=== PATIENT | male | born 1950 | race Caucasian/White ===

== ENCOUNTER 2021-12-14 18:46 | Observation (INO) | payer MEDICARE ==
[2021-12-14] MEDS ORDERED: DIPH,PERTUS(ACELL)TETVAC-LF 0.5 ML VIAL IM ONE (19:01)
[2021-12-14] MEDS ORDERED: TOPICAL SKIN ADHESIVE 1 EACH AMP TOPICAL ONE (19:01)
--- NOTE | 2021-12-14 19:05 | ED ---
General Adult HPI - General Chief complaint: Altered Mental Status Stated complaint: syncope Time Seen by Provider: 12/14/21 18:52 Source: patient, family, RN notes reviewed Mode of arrival: wheelchair Limitations: no limitations - History of Present Illness Initial comments: Patient is a pleasant 70-year-old male presenting to the emergency department following syncopal episode. Patient was walking in the house when family believes he lost consciousness and did run into a hinge on the wall. Patient states he feels fine at this time and has no complaints. With further questioning patient family agrees he does seem somewhat confused. Patient de nies headache. No neck or back pain. No weakness. No history of similar symptoms previous. No history of previous dysrhythmia or a fibrillation. Unclear last tetanus immunization. Patient is on Plavix. - Related Data Home Medications Medication Instructions Recorded Confirmed Krill Oil 500 mg PO DAILY 01/12/16 01/12/16 Levothyroxine Sodium [Synthroid] 88 mcg PO DAILY 01/12/16 01/12/16 Multivitamins, Thera [Multivitamin 1 tab PO DAILY 01/12/16 01/12/16 (formulary)] lisinopriL [Zestril] 20 mg PO DAILY 01/12/16 01/12/16 Previous Rx's Medication Instructions Recorded Atorvastatin [Lipitor] 40 mg PO DAILY #30 tab 01/15/16 Clopidogrel [Plavix] 75 mg PO DAILY #30 tab 01/15/16 Allergies Allergy/AdvReac Type Severity Reaction Status Date / Time No Known Allergies Allergy Verified 12/14/21 18:48 Review of Systems ROS Statement: Those systems with pertinent positive or pertinent negative responses have been documented in the HPI. ROS Other: All systems not noted in ROS Statement are negative. Constitutional: Denies: fever Eyes: Denies: eye pain ENT: Denies: ear pain Respiratory: Denies: cough Cardiovascular: Denies: chest pain Endocrine: Denies: fatigue Gastrointestinal: Denies: abdominal pain Genitourinary: Denies: dysuria Musculoskeletal: Denies: back pain Skin: Denies: rash Neurological: Reports: as per HPI. Denies: headache, weakness Past Medical History Past Medical History: Asthma, Hypertension, Thyroid Disorder Additional Past Medical History / Comment(s): "I was told today that I have had a stroke in the past. It showed on my cat scan today." other HX: Hypothyroid, seasonal sinus problems. History of Any Multi-Drug Resistant Organisms: None Reported Past Surgical History: No Surgical Hx Reported Additional Past Surgical History / Comment(s): Varicoseal, colonoscopy with benign polypectomy. Past Anesthesia/Blood Transfusion Reactions: No Reported Reaction Past Psychological History: No Psychological Hx Reported Smoking Status: Former smoker Past Alcohol Use History: Occasional Past Drug Use History: None Reported - Past Family History Mother Family Medical History: Dementia Additional Family Medical History / Comment(s): Mother of dementia at the age of 86yrs. Father Family Medical History: No Reported History Additional Family Medical History / Comment(s): Father of "natural causes" at the age of 73 yrs. General Exam Limitations: no limitations General appearance: alert, in no apparent distress Head exam: Present: other (Left eyebrow/forehead laceration) Eye exam: Present: normal appearance, PERRL, EOMI ENT exam: Present: normal oropharynx Neck exam: Present: normal inspection. Absent: tenderness Respiratory exam: Present: normal lung sounds bilaterally Cardiovascular Exam: Present: tachycardia, irregular rhythm GI/Abdominal exam: Present: soft. Absent: tenderness Extremities exam: Present: normal inspection Neurological exam: Present: alert, CN II-XII intact. Absent: motor sensory deficit Expanded Patient oriented to: Present: person. Absent: place (Hospital,not what city), time (Oriented to month but not year) Speech: Present: fluid speech Cranial nerves: EOM's Intact: Normal, Facial Sensation: Normal Sensory exam: Upper Extremity Light Touch: Normal, Lower Extremity Light Touch: Normal Motor strength exam: RUE: 5, LUE: 5, RLE: 5, LLE: 5 Eye Response: (4) open spontaneously Motor Response: (6) obeys commands Verbal Response: (4) confused conversation Psychiatric exam: Present: normal affect, normal mood Skin exam: Present: normal color, other (Laceration) Course Vital Signs 12/14/21 12/14/21 12/14/21 18:48 18:59 19:41 Temperature 97.9 F Pulse Rate 106 H 130 H 108 H Respiratory 18 16 16 Rate Blood Pressure 126/76 123/91 142/91 O2 Sat by Pulse 98 99 98 Oximetry EKG Findings - EKG Comments: EKG Findings:: A. fib with rate of 112. QRS 110. QT 301. QTC 367. Left axis. No acute ST change. Inferior Q waves. Procedures - Laceration Laceration #1 Consent Obtained: verbal consent Indication: laceration Site: face Size (cm): 3 Description: linear (Y) Depth: simple, single layer Pre-repair: wound explored, irrigated extensively Type of Sutures: other (Closed with skin adhesive) Patient Tolerated Procedure: well, no complications Medical Decision Making - Medical Decision Making Patient reevaluated and improved. Patient is oriented 3 at this time. No confusion. patient does have new-onset A. fib with RVR. Patient and family updated on results and plan. Dr. Poole has been paged for admission, covering for Dr. Martinez. Cardiology and neurology will be placed on consult. Cardizem drip started. Anticoagulation will be deferred to the morning secondary to syncope with head contusion and transient mild confusion. - Lab Data Result diagrams: 12/14/21 19:05 12/14/21 19:05 Lab Results 12/14/21 12/14/21 12/14/21 Range/Units 19:05 19:05 19:05 WBC 10.5 (3.8-10.6) k/uL RBC 4.24 L (4.30-5.90) m/uL Hgb 14.2 (13.0-17.5) gm/dL Hct 41.5 (39.0-53.0) % MCV 97.8 (80.0-100.0) fL MCH 33.5 (25.0-35.0) pg MCHC 34.2 (31.0-37.0) g/dL RDW 12.3 (11.5-15.5) % Plt Count 309 (150-450) k/uL MPV 7.4 Neutrophils % 67 % Lymphocytes % 23 % Monocytes % 4 % Eosinophils % 3 % Basophils % 0 % Neutrophils # 7.0 (1.3-7.7) k/uL Lymphocytes # 2.4 (1.0-4.8) k/uL Monocytes # 0.5 (0-1.0) k/uL Eosinophils # 0.3 (0-0.7) k/uL Basophils # 0.0 (0-0.2) k/uL PT 10.0 (9.0-12.0) sec INR 0.9 (<1.2) APTT 22.7 (22.0-30.0) sec Sodium 131 L (137-145) mmol/L Potassium 4.2 (3.5-5.1) mmol/L Chloride 95 L (98-107) mmol/L Carbon Dioxide 18 L (22-30) mmol/L Anion Gap 18 mmol/L BUN 16 (9-20) mg/dL Creatinine 1.23 (0.66-1.25) mg/dL Est GFR (CKD-EPI)AfAm 70 (>60 ml/min/1.73 sqM) Est GFR (CKD-EPI)NonAf 60 (>60 ml/min/1.73 sqM) Glucose 108 H (74-99) mg/dL Calcium 8.7 (8.4-10.2) mg/dL Magnesium 1.9 (1.6-2.3) mg/dL Total Bilirubin 0.7 (0.2-1.3) mg/dL AST 23 (17-59) U/L ALT 19 (4-49) U/L Alkaline Phosphatase 56 (38-126) U/L Troponin I (0.000-0.034) ng/mL Total Protein 6.9 (6.3-8.2) g/dL Albumin 4.2 (3.5-5.0) g/dL 12/14/21 Range/Units 19:05 WBC (3.8-10.6) k/uL RBC (4.30-5.90) m/uL Hgb (13.0-17.5) gm/dL Hct (39.0-53.0) % MCV (80.0-100.0) fL MCH (25.0-35.0) pg MCHC (31.0-37.0) g/dL RDW (11.5-15.5) % Plt Count (150-450) k/uL MPV Neutrophils % % Lymphocytes % % Monocytes % % Eosinophils % % Basophils % % Neutrophils # (1.3-7.7) k/uL Lymphocytes # (1.0-4.8) k/uL Monocytes # (0-1.0) k/uL Eosinophils # (0-0.7) k/uL Basophils # (0-0.2) k/uL PT (9.0-12.0) sec INR (<1.2) APTT (22.0-30.0) sec Sodium (137-145) mmol/L Potassium (3.5-5.1) mmol/L Chloride (98-107) mmol/L Carbon Dioxide (22-30) mmol/L Anion Gap mmol/L BUN (9-20) mg/dL Creatinine (0.66-1.25) mg/dL Est GFR (CKD-EPI)AfAm (>60 ml/min/1.73 sqM) Est GFR (CKD-EPI)NonAf (>60 ml/min/1.73 sqM) Glucose (74-99) mg/dL Calcium (8.4-10.2) mg/dL Magnesium (1.6-2.3) mg/dL Total Bilirubin (0.2-1.3) mg/dL AST (17-59) U/L ALT (4-49) U/L Alkaline Phosphatase (38-126) U/L Troponin I <0.012 (0.000-0.034) ng/mL Total Protein (6.3-8.2) g/dL Albumin (3.5-5.0) g/dL - Radiology Data Radiology results: report reviewed (CT brain cervical spine show no acute process), image reviewed (Chest x-ray shows no definite acute process but does recommend follow-up) Critical Care Time Critical Care Time: Yes Total Critical Care Time: 32 Disposition Clinical Impression: Laceration of forehead, Syncope, New onset a-fib Disposition: ADMITTED IP TO THIS [facility] Instructions (If sedation given, give patient instructions): Skin Adhesive Care (ED) Is patient prescribed a controlled substance at d/c from ED?: No Referrals: Yaritza Martinez DO [Primary Care Provider] - 1-2 days Time of Disposition: 21:18
[2021-12-14 19:18] LABS: Basophils % (A) 0 %; Eosinophils # (A) 0.3 k/uL (0-0.7); Eosinophils % (A) 3 %; HCT 41.5 % (39.0-53.0); HGB 14.2 gm/dL (13.0-17.5); Lymphocytes # (A) 2.4 k/uL (1.0-4.8); Lymphocytes % (A) 23 %; MCH 33.5 pg (25.0-35.0); MCHC 34.2 g/dL (31.0-37.0); MCV 97.8 fL (80.0-100.0); Mean Platelet Volume 7.4; Monocytes # (A) 0.5 k/uL (0-1.0); Monocytes % (A) 4 %; Neutrophils % (A) 67 %; Platelet Count 309 k/uL (150-450); RBC 4.24 m/uL (4.30-5.90); RDW 12.3 % (11.5-15.5); WBC 10.5 k/uL (3.8-10.6)
[2021-12-14 19:31] LABS: Albumin 4.2 g/dL (3.5-5.0); Calcium 8.7 mg/dL (8.4-10.2); Magnesium 1.9 mg/dL (1.6-2.3); Potassium 4.2 mmol/L (3.5-5.1); Total Bilirubin 0.7 mg/dL (0.2-1.3); Total Protein 6.9 g/dL (6.3-8.2)
[2021-12-14 20:12] LABS: INR 0.9 (<1.2); Partial Thromboplastin Time 22.7 sec (22.0-30.0)
--- NOTE | 2021-12-14 20:24 | XR ---
EXAMINATION: XR chest 2V DATE AND TIME: 12/14/2021 7:32 PM CLINICAL INDICATION: syncope TECHNIQUE: Departmental protocol COMPARISON: 01/12/2016 FINDINGS: The hemidiaphragms are elevated, consistent with relatively low lung inflation at the moment of X-ray exposure. Given this factor/limitation the lungs appear to be clear. The pleural spaces are negative. The cardiac silhouette is not enlarged. The remainder of the mediastinal silhouette is unremarkable. The skeletal structures and soft tissues are negative for acute findings. IMPRESSION: No definite acute process, but 6 week follow up full-inspiration PA and lateral CXR examination jace alanis.
--- NOTE | 2021-12-14 21:12 | CT ---
EXAMINATION TYPE: CT brain tatianaine wo con DATE OF EXAM: 12/14/2021 COMPARISON: 01/12/16 HISTORY: syncope CT DLP: 1493 mGycm. Automated Exposure Control for Dose Reduction was Utilized. TECHNIQUE: CT scan of the head and cervical spine are performed without contrast. FINDINGS: There is no acute intracranial hemorrhage, mass effect, or midline shift identified. The ventricles and sulci are within normal limits in size. The globes are intact and the visualized sin uses are clear. Cervical spine is visualized in its entirety from C1 through upper thoracic levels and demonstrates s atisfactory alignment without evidence of acute fracture or dislocation. Prevertebral soft tissue ap pears within normal limits. The C1-C2 articulation is unremarkable. IMPRESSION: 1. There is no acute fracture or dislocation evident in the cervical spine. 2. No acute intracranial hemorrhage, mass effect, or midline shift is seen.
[2021-12-14] MEDS ORDERED: NALOXONE 0.4 MG/ML 1 ML VIAL IV PRN (21:19)
[2021-12-14] MEDS ORDERED: ACETAMINOPHEN TAB 325 MG TAB PO PRN (21:19)
[2021-12-14] MEDS ORDERED: DILTIAZEM 125 MG in SODIUM CHLORIDE 0.9% 100 ML IV SCH (21:30)
[2021-12-14] MEDS: SODIUM CHLORIDE 0.9% 1,000 ML IV SCH (22:21)
--- NOTE | 2021-12-15 09:59 | P.CRDCN ---
History of Present Illness History of present illness: HISTORY OF PRESENTING ILLNESS Patient is a pleasant 70-year-old male with history of hypertension, hyperlipidemia, TIA 2019, new-onset of atrial fibrillation who presents for syncopal episode. Patient states he was asleep and then his called for him and apparently he attempted to get up out of his chair and then lost consciousness. Does not recall any prodrome of chest pain or lightheadedness or shortness of breath. found patient with contusion on his left forehead as well as had had a bowel movement. Patient was brought to the ER and found to be in A. fib with mild RVR which is a new diagnosis for him. He had fairly quick return wall with him and mole within approximately 5-10 minutes and was only unconscious for 15-20 seconds. He denies any prior history. No family history of sudden cardiac . EKG shows atrial fibrillation with RVR without significant ST-T wave abnormalities. Troponins normal 3. No d-dimer was drawn. Currently states he feels at his baseline. Has never had cardiac workup before. Noted to be mildly hyponatremic. He was briefly placed on Cardizem drip and converted to sinus rhythm. REVIEW OF SYSTEMS At the time of my exam: CONSTITUTIONAL: Denies fever or chills. CARDIOVASCULAR: Denies chest pain, shortness of breath, orthopnea, PND or palpitations. RESPIRATORY: Denies cough. GASTROINTESTINAL: Denies abdominal pain, diarrhea, constipation, nausea or vomiting. MUSCULOSKELETAL: Denies myalgias. NEUROLOGIC: Denies numbness, tingling or weakness. ENDOCRINE: Denies fatigue, weight change, polydipsia or polyurina. GENITOURINARY: Denies burning, hematuria or urgency with micturation. HEMATOLOGIC: Denies history of anemia or bleeding. PHYSICAL EXAMINATION Vital signs reviewed. CONSTITUTIONAL: No apparent distress. HEENT: Head is normocephalic. Pupils are equal, round. Sclerae anicteric. Mucous membranes of the mouth are moist. No JVD. No carotid bruit. CHEST EXAMINATION: Lungs are clear to auscultation. No chest wall tenderness is noted on palpation or with deep breathing. HEART EXAMINATION: Regular rate and rhythm. S1, S2 heard. No murmurs, gallops or rub. ABDOMEN: Soft, nontender. Positive bowel sounds. EXTREMITIES: 2+ peripheral pulses, no lower extremity edema and no calf tenderness. NEUROLOGIC EXAMINATION: Patient is awake, alert and oriented x3. ASSESSMENT 1. Syncope after waking up 2. New-onset atrial fibrillation, currently back to sinus rhythm 3. Hypertension 4. Prior history of stroke 5. Hyponatremia PLAN We will check d-dimer for completeness sake to rule out any pulmonary embolism. If abnormal we will check a CTA given new-onset of atrial fibrillation. Usually atrial fibrillation should not cause syncope however may have had a conversion pause. Check 2-D echo. Stop Plavix and start Eliquis. Start metoprolol 12.5 daily. If CTA and echo unrevealing patient may be discharged home with a 30 day event monitor. Follow-up in office in 1-2 weeks. Past Medical History Past Medical History: Asthma, CVA/TIA, Hypertension, Thyroid Disorder Additional Past Medical History / Comment(s): Hypothyroid, seasonal sinus problems, pt had CVA im 2015 History of Any Multi-Drug Resistant Organisms: None Reported Past Surgical History: No Surgical Hx Reported Additional Past Surgical History / Comment(s): Varicoseal, colonoscopy with arnold gn polypectomy. Past Anesthesia/Blood Transfusion Reactions: No Reported Reaction Past Psychological History: No Psychological Hx Reported Additional Psychological History / Comment(s): Pt resides with his spouse. He is independent. Smoking Status: Former smoker Past Alcohol Use History: Occasional Past Drug Use History: None Reported - Past Family History Mother Family Medical History: Dementia Additional Family Medical History / Comment(s): Mother of dementia at the age of 86yrs. Father Family Medical History: No Reported History Additional Family Medical History / Comment(s): Father of "natural causes" at the age of 73 yrs. Medications and Allergies Home Medications Medication Instructions Recorded Confirmed Type Levothyroxine Sodium [Synthroid] 88 mcg PO DAILY 01/12/16 12/14/21 History Multivitamins, Thera [Multivitamin 1 tab PO DAILY 01/12/16 12/14/21 History (formulary)] Atorvastatin [Lipitor] 40 mg PO DAILY #30 tab 01/15/16 12/14/21 Rx Clopidogrel [Plavix] 75 mg PO DAILY #30 tab 01/15/16 12/14/21 Rx Ascorbic Acid [Vitamin C] 1,000 mg PO DAILY 12/14/21 12/14/21 History Cholecalciferol [Vitamin D3 (25 25 mcg PO DAILY 12/14/21 12/14/21 History Mcg = 1000 Iu)] Lisinopril/Hydrochlorothiazide 1 tab PO DAILY 12/14/21 12/14/21 History [Zestoretic 10-12.5] [place]-3/Dha/Epa/Fish Oil [Fish Oil 1 cap PO DAILY 12/14/21 12/14/21 History 1,000 mg Softgel] Allergies Allergy/AdvReac Type Severity Reaction Status Date / Time No Known Allergies Allergy Verified 12/14/21 21:32 Physical Exam Vitals: Vital Signs Temp Pulse Pulse Resp BP BP Pulse Ox 12/15/21 08:00 98.2 F 70 18 132/77 96 12/15/21 04:00 97.9 F 71 19 130/77 98 12/14/21 23:08 87 18 137/80 96 12/14/21 22:22 98.0 F 92 16 136/79 97 12/14/21 21:28 117 H 16 134/100 97 12/14/21 19:41 108 H 16 142/91 98 12/14/21 18:59 130 H 16 123/91 99 12/14/21 18:48 97.9 F 106 H 18 126/76 98 Intake and Output 12/14/21 12/15/21 12/15/21 22:59 06:59 14:59 Other: Voiding Method Toilet Toilet # Voids 2 Weight 97.522 kg Results 12/14/21 19:05 12/14/21 19:05 Cardiac Enzymes 12/14/21 12/14/21 12/15/21 Range/Units 19:05 19:05 00:18 AST 23 (17-59) U/L Troponin I <0.012 <0.012 (0.000-0.034) ng/mL 12/15/21 Range/Units 03:36 AST (17-59) U/L Troponin I <0.012 (0.000-0.034) ng/mL Coagulation 12/14/21 Range/Units 19:05 PT 10.0 (9.0-12.0) sec APTT 22.7 (22.0-30.0) sec CBC 12/14/21 Range/Units 19:05 WBC 10.5 (3.8-10.6) k/uL RBC 4.24 L (4.30-5.90) m/uL Hgb 14.2 (13.0-17.5) gm/dL Hct 41.5 (39.0-53.0) % Plt Count 309 (150-450) k/uL Comprehensive Metabolic Panel 12/14/21 Range/Units 19:05 Sodium 131 L (137-145) mmol/L Potassium 4.2 (3.5-5.1) mmol/L Chloride 95 L (98-107) mmol/L Carbon Dioxide 18 L (22-30) mmol/L BUN 16 (9-20) mg/dL Creatinine 1.23 (0.66-1.25) mg/dL Glucose 108 H (74-99) mg/dL Calcium 8.7 (8.4-10.2) mg/dL AST 23 (17-59) U/L ALT 19 (4-49) U/L Alkaline Phosphatase 56 (38-126) U/L Total Protein 6.9 (6.3-8.2) g/dL Albumin 4.2 (3.5-5.0) g/dL Current Medications Generic Name Dose Route Start Last Admin Trade Name Freq PRN Reason Stop Dose Admin Acetaminophen 650 mg 12/14/21 21:19 Acetaminophen Tab 325 Mg Tab PO Q6HR PRN Mild Pain or Fever > 100.5 Diltiazem HCl 125 mg/ Sodium 125 mls @ 5 mls/hr 12/14/21 21:30 12/14/21 22:21 Chloride IV 5 mg/hr .Q24H ERIK 5 mls/hr Administration 5 MG/HR Sodium Chloride 1,000 mls @ 75 mls/hr 12/14/21 21:30 12/14/21 22:21 Saline 0.9% IV 75 mls/hr .[id number] ERIK Administration Naloxone HCl 0.2 mg 12/14/21 21:19 Naloxone 0.4 Mg/Ml 1 Ml Vial IV Q2M PRN Opioid Reversal Intake and Output 12/14/21 12/15/21 12/15/21 22:59 06:59 14:59 Other: Voiding Method Toilet Toilet # Voids 2 Weight 97.522 kg 12/14/21 19:05 12/14/21 19:05
--- NOTE | 2021-12-15 10:55 | P.CNNES ---
History of Present Illness Consult date: 12/15/21 Requesting physician: Papi Lozada Reason for Consult: syncope vs transient confusion History of Present Illness: This is a 70 year old gentleman with medical history of old stroke about 6 years ago, hypothyroidism, hypertension who presented emergency department following a syncopal episode. Patient stated that yesterday he was sitting down in a chair watching TV and then fell asleep. Then his called him so he got up and the he was sitting in the living room and walk to the kitchen and all of a sudden he passed out. He said he passed out for about a minute and a half and regained consciousness quickly. When he felt the immediately ran to check on him and that he denied that he had any jerk in of any extremity. Patient denied any symptoms prior to passing out. Denies any shortness of breath, chest pain, feeling lightheaded, any dizziness, any visual disturbance. He did have urinary incontinence after the episode. Denied any tongue bite or tongue soreness. Denied any bowel incontinence. Denies any history of seizures or any family history of seizures. Denies any history of atrial fibrillation. Of note in 2016 patient had MRI the brain in our facility and is reported that the patient has parasagittal left frontal stroke that was acute Some of the workup during this hospital visit consisted of: Patient is afebrile and the white blood cell is within normal limits. Red blood cells 4.24 which is slightly low otherwise rest of CBC with differential is unremarkable Initial serum glucose is 108. Sodium is 131. AST and ALT is within normal limits ED had is reported as no acute intracranial hemorrhage, mass effect or midline shift is seen. I personally reviewed the CT of the head there is no acute subacute ischemic stroke. There is no acute parenchymal hemorrhage. The patient does have an old left subcortical frontal next to the anterior horn of the lateral ventricle CT cervical is reported as there is no acute fracture or dislocation of the cervical spine. EKG is reported as age are fibrillation with rapid ventricular response. Left axis deviation. Review of Systems Review of system: The 12 point system was reviewed and apparent positive and negative per HPI. Past Medical History Past Medical History: Asthma, CVA/TIA, Hypertension, Thyroid Disorder Additional Past Medical History / Comment(s): Hypothyroid, seasonal sinus problems, pt had CVA im 2016 History of Any Multi-Drug Resistant Organisms: None Reported Past Surgical History: No Surgical Hx Reported Additional Past Surgical History / Comment(s): Varicoseal, colonoscopy with benign polypectomy. Past Anesthesia/Blood Transfusion Reactions: No Reported Reaction Past Psychological History: No Psychological Hx Reported Additional Psychological History / Comment(s): Pt resides with his spouse. He is independent. Smoking Status: Former smoker Past Alcohol Use History: Occasional Past Drug Use History: None Reported - Past Family History Mother Family Medical History: Dementia Additional Family Medical History / Comment(s): Mother of dementia at the age of 86yrs. Father Family Medical History: No Reported History Additional Family Medical History / Comment(s): Father of "natural causes" at the age of 73 yrs. Medications and Allergies Home Medications Medication Instructions Recorded Confirmed Type Levothyroxine Sodium [Synthroid] 88 mcg PO DAILY 01/12/16 12/14/21 History Multivitamins, Thera [Multivitamin 1 tab PO DAILY 01/12/16 12/14/21 History (formulary)] Atorvastatin [Lipitor] 40 mg PO DAILY #30 tab 01/15/16 12/14/21 Rx Clopidogrel [Plavix] 75 mg PO DAILY #30 tab 01/15/16 12/14/21 Rx Ascorbic Acid [Vitamin C] 1,000 mg PO DAILY 12/14/21 12/14/21 History Cholecalciferol [Vitamin D3 (25 25 mcg PO DAILY 12/14/21 12/14/21 History Mcg = 1000 Iu)] Lisinopril/Hydrochlorothiazide 1 tab PO DAILY 12/14/21 12/14/21 History [Zestoretic 10-12.5] [place]-3/Dha/Epa/Fish Oil [Fish Oil 1 cap PO DAILY 12/14/21 12/14/21 History 1,000 mg Softgel] Allergies Allergy/AdvReac Type Severity Reaction Status Date / Time No Known Allergies Allergy Verified 12/14/21 21:32 Physical Examination - Vital Signs Vital Signs: Vital Signs Temp Pulse Pulse Resp BP BP Pulse Ox 12/15/21 08:00 94 L 12/15/21 04:00 97.9 F 71 19 130/77 98 12/14/21 23:08 87 18 137/80 96 12/14/21 22:22 98.0 F 92 16 136/79 97 12/14/21 21:28 117 H 16 134/100 97 12/14/21 19:41 108 H 16 142/91 98 12/14/21 18:59 130 H 16 123/91 99 12/14/21 18:48 97.9 F 106 H 18 126/76 98 Intake and Output 12/14/21 12/15/21 12/15/21 22:59 06:59 14:59 Other: Voiding Method Toilet # Voids 2 Weight 97.522 kg GENERAL: The patient is lying in bed and is not in acute distress. HENT: Left periorbital bruise mostly left lateral and lower. CHEST: The heart rate is regular rate rhythm. No murmurs to auscultation. LUNG: Clear to auscultation bilaterally no wheezing noted throughout. Not labored breathing. ABDOMEN/GI: Bowel sounds present in all 4 quadrants. No tenderness to palpation throughout. NEUROLOGICAL: Higher mental function: The patient is awake, alert, oriented to self, place and time. Patient is following commands. No aphasia and no neglect. Cranial nerves: The pupils are round, equal and reactive to light and accommodation. Visual norris are full to confrontation throughout. Extraocular movement is intact no nystagmus is noted. Facial sensation is normal to touch throughout. The facial strength is normal throughout. Hearing is normal bilaterally to hand rub. Tongue is midline and moved [id number] without any difficulty. No dysarthria is noted. Shoulder shrug is normal bilaterally. Motor: Gait is deferred. The strength is 5 over 5 throughout. Normal tone and bulk. Cerebellum: Normal finger to nose bilaterally. Sensation: Sensation is normal to touch throughout. Reflexes (right/left): 2+ throughout. Plantars are downgoing bilaterally. Results - Laboratory Findings CBC and BMP: 12/14/21 19:05 12/14/21 19:05 Abnormal Lab Findings: Abnormal Labs 12/14/21 12/14/21 19:05 19:05 RBC 4.24 L Sodium 131 L Chloride 95 L Carbon Dioxide 18 L Glucose 108 H Assessment and Plan Assessment: Syncopal episodes seems possibly due to cardiac in etiology. Has new onset atrial which possibly can cause cardiac pause per cardiology. Does not appear seizures. New onset atrial fibrillation Old left subcortical frontal stroke adjacent to anterior horn of lateral ventricle Hypertension Hypothyroidism Plan: I ordered orthostatic vitals and routine EEG. If EEG is positive for epileptiform discharges or seizures then will start antiepileptic discharges. Cardiology is consulted We'll defer the rest of the medical management to primary team The plan is discussed with patient. Thank you for consultation. David Diaz M.D. Neuro-hospitalist Time with Patient: Greater than 30
[2021-12-15] MEDS: METOPROLOL SUCCINATE (ER) 25 MG TAB.ER.24H PO SCH (11:53)
[2021-12-15] MEDS: APIXABAN 5 MG TAB PO SCH ×2 (11:53→19:59)
[2021-12-15] MEDS: SODIUM CHLORIDE 0.9% 1,000 ML IV SCH (11:53)
--- NOTE | 2021-12-15 17:55 | CA ---
Transthoracic Echo Report Name: Mike Jarvis Age: 70 Gender: M : 1950 Exam Date: 12/15/2021 10:41 Exam Location: [facility] Ht (in): 75 Wt (lb): 215 Ordering Physician: Kj Caceres DO ([email or web address]) Attending/Referring Phys: Flight Superintendent Ni Mendoza RDCS Procedure CPT: Indications: re: Syncope Cardiac Hx: Technical Quality: Fair Contrast 1: Total Dose (mL): Contrast 2: Total Dose (mL): MEASUREMENTS (Male / Female) Normal Values 2D ECHO LV Diastolic Diameter PLAX 4.6 cm 4.2 - 5.9 / 3.9 - 5.3 cm LV Systolic Diameter PLAX 2.6 cm IVS Diastolic Thickness 1.2 cm 0.6 - 1.0 / 0.6 - 0.9 cm LVPW Diastolic Thickness 1.3 cm 0.6 - 1.0 / 0.6 - 0.9 cm LV Relative Wall Thickness 0.5 RV Internal Dim ED PLAX 3.1 cm LA Volume 63.1 cm??? 18 - 58 / 22 - 52 cm??? M-MODE Aortic Root Diameter MM 3.5 cm MV E Point Septal Separation 0.6 cm AV Cusp Separation MM 2.4 cm DOPPLER AV Peak Velocity 133.6 cm/s AV Peak Gradient 7.1 mmHg MV Area PHT 4.5 cm??? Mitral E Point Velocity 107.1 cm/s Mitral A Point Velocity 73.0 cm/s Mitral E to A Ratio 1.5 MV Deceleration Time 169.2 ms MV E' Velocity 9.7 cm/s Mitral E to MV E' Ratio 11.0 TR Peak Velocity 266.8 cm/s TR Peak Gradient 28.5 mmHg Right Ventricular Systolic Press 33.5 mmHg FINDINGS Left Ventricle Left ventricular ejection fraction is estimated at 60-65 %. Left ventricular cavity size normal. Mild concentric left ventricular hypertrophy. Right Ventricle Normal right ventricular size and function. Right Atrium Normal right atrial size. Left Atrium Mildly increased left atrial volume. Mildly increased left atrial area. Patent foramen ovale present with a [id number] shunt. Mitral Valve Structurally normal mitral valve. No mitral stenosis, regurgitation or prolapse. Aortic Valve Trileaflet aortic valve. No aortic valve stenosis or regurgitation. Tricuspid Valve Mild tricuspid regurgitation. Pulmonic Valve Structurally normal pulmonic valve. Pericardium Normal pericardium. No pericardial effusion. Aorta Normal size aortic root and proximal ascending aorta. CONCLUSIONS Normal left ventricular dimension and systolic function Atrial septal defect versus patent foramen ovale Previewed by: Dr. Alessio Alvarado MD (Electronically Signed) Final Date: 15 December 2021 17:55
--- NOTE | 2021-12-16 01:17 | EEG ---
ELECTROENCEPHALOGRAM REPORT CLINICAL HISTORY: This is a 70-year-old gentleman with a syncopal episode at his home. The video EEG is obtained to evaluate for seizure epileptiform activity. RELEVANT MEDICATION: The patient is not on any antiepileptic drug. EEG TYPE: A routine 21-channel EEG is performed with video using the 10/20 electrode placement system. DESCRIPTION: Wakefulness and drowsiness are obtained. During awake state, the posterior- dominant rhythm consists of low to moderate voltage of 9 to 9.5 hertz that is well modulated, well sustained. There is no physiological stage 2 sleep architecture. There is no focal slowing. INTERICTAL AND ICTAL: None. ACTIVATION PROCEDURE: Photic stimulation did not evoke a posterior driving response. There is no abnormality during the photic stimulation. Hyperventilation was not performed. CLINICAL INTERPRETATION: This is a normal routine EEG. There is no focal slowing, epileptiform discharge, or seizure on the EEG. Clinical correlation is recommended GURMEET / SHENG: [id number] / MTDD
[2021-12-16] MEDS: SODIUM CHLORIDE 0.9% 1,000 ML IV SCH ×2 (06:56→14:49)
[2021-12-16] MEDS: APIXABAN 5 MG TAB PO SCH ×2 (08:06→18:01)
[2021-12-16] MEDS: METOPROLOL SUCCINATE (ER) 25 MG TAB.ER.24H PO SCH (08:06)
[2021-12-16] MEDS ORDERED: CHOLECALCIFEROL 25 MCG (1000 IU) TABLET PO SCH (09:00)
[2021-12-16] MEDS ORDERED: CLOPIDOGREL 75 MG TAB PO SCH (09:00)
[2021-12-16] MEDS ORDERED: LEVOTHYROXINE 88 MCG TAB PO SCH (09:00)
[2021-12-16] MEDS ORDERED: LISINOPRIL-HCTZ 10-12.5 MG 1 EACH TAB PO SCH (09:00)
[2021-12-16] MEDS ORDERED: ATORVASTATIN 40 MG TAB PO SCH (09:00)
[2021-12-16] MEDS ORDERED: ASCORBIC ACID 500 MG TAB PO SCH (09:00)
[2021-12-16 09:22] VITALS: TEMP 98.1
--- NOTE | 2021-12-16 11:48 | P.HPIM ---
History of Present Illness H&P Date: 12/15/21 Chief Complaint: Altered Mental Status 70-year-old male presenting to the emergency department following syncopal episode. Patient was walking in the house when family believes he lost consciousness and did run into a hinge on the wall. Patient states he feels fine at this time and has no complaints. With further questioning patient family agrees he does seem somewhat confused. Patient denies headache. No neck or back pain. No weakness. No history of similar symptoms previous. No history of previous dysrhythmia or a fibrillation. Unclear last tetanus immunization. Patient is on Plavix. white blood cell is within normal limits. Red blood cells 4.24 which is slightly low otherwise rest of CBC with differential is unremarkable Initial serum glucose is 108. Sodium is 131. AST and ALT is within normal limits ED had is reported as no acute intracranial hemorrhage, mass effect or midline shift is seen. The patient does have an old left subcortical frontal next to the anterior horn of the lateral ventricle CT cervical is reported as there is no acute fracture or dislocation of the cervical spine. EKG is reported as age are fibrillation with rapid ventricular response. Left axis deviation. Past Medical History Past Medical History: Asthma, CVA/TIA, Hypertension, Thyroid Disorder Additional Past Medical History / Comment(s): Hypothyroid, seasonal sinus problems, pt had CVA im 2015 History of Any Multi-Drug Resistant Organisms: None Reported Past Surgical History: No Surgical Hx Reported Additional Past Surgical History / Comment(s): Varicoseal, colonoscopy with benign polypectomy. Past Anesthesia/Blood Transfusion Reactions: No Reported Reaction Past Psychological History: No Psychological Hx Reported Additional Psychological History / Comment(s): Pt resides with his spouse. He is independent. Smoking Status: Former smoker Past Alcohol Use History: Occasional Past Drug Use History: None Reported - Past Family History Mother Family Medical History: Dementia Additional Family Medical History / Comment(s): Mother of dementia at the age of 86yrs. Father Family Medical History: No Reported History Additional Family Medical History / Comment(s): Father of "natural causes" at the age of 73 yrs. Medications and Allergies Home Medications Medication Instructions Recorded Confirmed Type Levothyroxine Sodium [Synthroid] 88 mcg PO DAILY 01/12/16 12/14/21 History Multivitamins, Thera [Multivitamin 1 tab PO DAILY 01/12/16 12/14/21 History (formulary)] Atorvastatin [Lipitor] 40 mg PO DAILY #30 tab 01/15/16 12/14/21 Rx Clopidogrel [Plavix] 75 mg PO DAILY #30 tab 01/15/16 12/14/21 Rx Ascorbic Acid [Vitamin C] 1,000 mg PO DAILY 12/14/21 12/14/21 History Cholecalciferol [Vitamin D3 (25 25 mcg PO DAILY 12/14/21 12/14/21 History Mcg = 1000 Iu)] Lisinopril/Hydrochlorothiazide 1 tab PO DAILY 12/14/21 12/14/21 History [Zestoretic 10-12.5] [place]-3/Dha/Epa/Fish Oil [Fish Oil 1 cap PO DAILY 12/14/21 12/14/21 History 1,000 mg Softgel] Allergies Allergy/AdvReac Type Severity Reaction Status Date / Time No Known Allergies Allergy Verified 12/14/21 21:32 Physical Exam Vitals: Vital Signs Temp Pulse Pulse Resp BP BP Pulse Ox 12/15/21 12:00 98.1 F 71 16 136/83 99 12/15/21 08:00 98.2 F 70 18 132/77 96 12/15/21 04:00 97.9 F 71 19 130/77 98 12/14/21 23:08 87 18 137/80 96 12/14/21 22:22 98.0 F 92 16 136/79 97 12/14/21 21:28 117 H 16 134/100 97 12/14/21 19:41 108 H 16 142/91 98 12/14/21 18:59 130 H 16 123/91 99 12/14/21 18:48 97.9 F 106 H 18 126/76 98 Intake and Output 12/14/21 12/15/21 12/15/21 22:59 06:59 14:59 Intake Total 65.417 Balance 65.417 Intake: Intake, IV Titration 65.417 Amount Diltiazem 125 mg In 65.417 Sodium Chloride 0.9% 100 ml @ 5 MG/HR 5 mls/hr IV .Q24H [facility] Rx#:[id number] Other: Voiding Method Toilet Toilet # Voids 2 Weight 97.522 kg General appearance: alert, in no apparent distress Head exam: Present: other (Left eyebrow/forehead laceration) Eye exam: Present: normal appearance, PERRL, EOMI Neck exam: Present: normal inspection. Absent: tenderness Respiratory exam: Present: normal lung sounds bilaterally Cardiovascular Exam: Present: tachycardia, irregular rhythm GI/Abdominal exam: Present: soft. Absent: tenderness Extremities exam: Present: normal inspection Neurological exam: Present: alert, CN II-XII intact. Absent: motor sensory deficit; EOM's Intact: Normal, Facial Sensation: Normal Sensory exam: Upper Extremity Light Touch: Normal, Lower Extremity Light Touch: Normal Motor strength exam: RUE: 5, LUE: 5, RLE: 5, LLE: 5 Psychiatric exam: Present: normal affect, normal mood Skin exam: Present: normal color Results CBC & Chem 7: 12/14/21 19:05 12/14/21 19:05 Labs: Abnormal Lab Results - Last 24 Hours (Table) 12/14/21 12/14/21 Range/Units 19:05 19:05 RBC 4.24 L (4.30-5.90) m/uL Sodium 131 L (137-145) mmol/L Chloride 95 L (98-107) mmol/L Carbon Dioxide 18 L (22-30) mmol/L Glucose 108 H (74-99) mg/dL Thrombosis Risk Factor Assmnt - Choose All That Apply Any of the Below Risk Factors Present?: Yes Each Risk Factor Represents 2 Points: Age 61-74 years Thrombosis Risk Factor Assessment Total Risk Factor Score: 2 Thrombosis Risk Factor Assessment Level: Low Risk Assessment and Plan Assessment: 1. Acute syncope - Neurology on board; patient has been placed on orthostatic vital signs; EEG is ordered with plans for antiseizure activity if EEG is positive for epileptiform discharges - 2-D echo is ordered and pending - Patient remains on telemetry; trend troponin 2. New onset atrial fibrillation; patient currently in normal sinus rhythm - Patient has been evaluated by cardiology; monitor EKG and trend troponin; check d-dimer to complete workup to rule out pulmonary embolism -- 2-D echo is ordered and pending; patient has been placed on metoprolol 12.5 mg daily and is recommended to stop Plavix and switch patient to oral anticoagulation with Eliquis - Patient to discharge home on 30 day event monitor if CTA chest and echocardiogram doesn't reveal etiology of syncope 3. Hypertension; patient takes Zestoretic 1012 0.5 mg daily; metoprolol 12.5 mg daily has been added; monitor blood pressure closely 4. Hyponatremia; sodium at 131 upon admission; slow IV fluid hydration; monitor electrolytes and replace as needed 5. History of CVA; patient takes Plavix and Lipitor 6. Hyperlipidemia; Lipitor 40 mg by mouth daily 7. Hypothyroidism; levothyroxin 88 MCG daily DVT prophylaxis; SCDs/systemic anticoagulation CODE STATUS; full code
--- NOTE | 2021-12-16 11:57 | P.PN ---
Subjective Progress Note Date: 12/16/21 The patient is seen at bedside and no further syncopal episodes. Objective - Vital Signs Vital signs: Vital Signs Temp 98.1 F 12/16/21 10:55 Pulse 68 12/16/21 10:55 Resp 18 12/16/21 10:55 BP 166/87 12/16/21 10:55 Pulse Ox 98 12/16/21 10:55 FiO2 Intake & Output 12/15/21 12/16/21 12/16/21 18:59 06:59 18:59 Intake Total 65.417 180 Balance 65.417 180 Intake: Intake, IV Titration 65.417 Amount Diltiazem 125 mg In 65.417 Sodium Chloride 0.9% 100 ml @ 5 MG/HR 5 mls/hr IV .Q24H [facility] Rx#:[id number] Oral 180 Other: Voiding Method Toilet Toilet Toilet # Voids 2 2 - Exam GENERAL: The patient is lying in bed and is not in acute distress. HENT: Left periorbital bruise mostly left lateral and lower. NEUROLOGICAL: Higher mental function: The patient is awake, alert, oriented to self, place and time. Patient is following commands. No aphasia and no neglect. Cranial nerves: The pupils are round, equal and reactive to light and accommodation. Visual norris are full to confrontation throughout. Extraocular movement is intact no nystagmus is noted. Facial sensation is normal to touch throughout. The facial strength is normal throughout. Hearing is normal bilaterally to hand rub. Tongue is midline and moved [id number] without any difficulty. No dysarthria is noted. Shoulder shrug is normal bilaterally. Motor: Gait is normal. The strength is 5 over 5 throughout. Normal tone and bulk. Cerebellum: Normal finger to nose bilaterally. Sensation: Sensation is normal to touch throughout. Reflexes (right/left): 2+ throughout. Plantars are downgoing bilaterally. Some of the workup during this hospital visit consisted of: Patient is afebrile and the white blood cell is within normal limits. Red blood cells 4.24 which is slightly low otherwise rest of CBC with differential is unremarkable Initial serum glucose is 108. Sodium is 131. AST and ALT is within normal limits ED had is reported as no acute intracranial hemorrhage, mass effect or midline shift is seen. I personally reviewed the CT of the head there is no acute subacute ischemic stroke. There is no acute parenchymal hemorrhage. The patient does have an old left subcortical frontal next to the anterior horn of the lateral ventricle CT cervical is reported as there is no acute fracture or dislocation of the cervical spine. EKG is reported as age are fibrillation with rapid ventricular response. Left axis deviation. Routine EEG: Normal. There is no focal slowing, epileptiform discharges or seizure on the EEG. 2-D echo was reported as normal left ventricular dimension solid function. Atrial septal defect versus patent foramen ovale. Mildly increased left atrial volume. Moderately increased left atrial area. - Labs CBC & Chem 7: 12/14/21 19:05 12/14/21 19:05 Assessment and Plan Assessment: Syncopal episodes seems possibly due to cardiac in etiology. Has new onset atrial which possibly can cause cardiac pause per cardiology. Does not appear seizures (routine EEG is normal). New onset atrial fibrillation ?ASD vs PFO on 2D echo Old left subcortical frontal stroke adjacent to anterior horn of lateral ventricle Hypertension Hypothyroidism Plan: Orthostatic vitals are negative. Routine EEG is normal. Cardiology is on board. Patient has ?ASD vs PFO on 2D echo and will defer the management to cardiology team. In General population, 25% has PFO. I recommend holding closing PFO is small but large and symptomatic then consider closing but will defer final decision to cardiology team. We'll defer the rest of the medical management to primary team The plan is discussed with patient and his nurse. No additional neurological work-up. Will sign off. Please reconsult if needed. David Diaz M.D. Neuro-hospitalist Time with Patient: Less than 30
[2021-12-16 16:42] VITALS: BP 176/86; PULSE 67; RESP 16
--- NOTE | 2021-12-16 16:53 | P.PN ---
Subjective HISTORY OF PRESENTING ILLNESS Patient is a pleasant 70-year-old male with history of hypertension, hyperlipidemia, TIA 2019, new-onset of atrial fibrillation who presents for syncopal episode. Patient states he was asleep and then his called for him and apparently he attempted to get up out of his chair and then lost consciousness. Does not recall any prodrome of chest pain or lightheadedness or shortness of breath. found patient with contusion on his left forehead as well as had had a bowel movement. Patient was brought to the ER and found to be in A. fib with mild RVR which is a new diagnosis for him. He had fairly quick return wall with him and mole within approximately 5-10 minutes and was only unconscious for 15-20 seconds. He denies any prior history. No family history of sudden cardiac . EKG shows atrial fibrillation with RVR without significant ST-T wave abnormalities. Troponins normal 3. No d-dimer was drawn. Currently states he feels at his baseline. Has never had cardiac workup before. Noted to be mildly hyponatremic. He was briefly placed on Cardizem drip and converted to sinus rhythm. 12/16 Patient seen and examined. Patient denies any further lightheaded episodes. D- dimer was noted to be normal. Echocardiogram shows ejection fraction 60-65%, mild LVH as well as PFO with [id number] shunt. EEG does not show any significant epileptiform activity. PHYSICAL EXAMINATION Vital signs reviewed. CONSTITUTIONAL: No apparent distress. HEENT: Head is normocephalic. Pupils are equal, round. Sclerae anicteric. Mucous membranes of the mouth are moist. No JVD. No carotid bruit. CHEST EXAMINATION: Lungs are clear to auscultation. No chest wall tenderness is noted on palpation or with deep breathing. HEART EXAMINATION: Regular rate and rhythm. S1, S2 heard. No murmurs, gallops or rub. ABDOMEN: Soft, nontender. Positive bowel sounds. EXTREMITIES: 2+ peripheral pulses, no lower extremity edema and no calf tenderness. NEUROLOGIC EXAMINATION: Patient is awake, alert and oriented x3. ASSESSMENT 1. Syncope after waking up 2. New-onset atrial fibrillation, currently back to sinus rhythm 3. Hypertension 4. Prior history of stroke 5. Hyponatremia 6. PFO PLAN Echocardiogram reviewed with preserved EF without significant valvular disease. Incidental note of PFO. More likely that undiagnosed atrial fibrillation was source of his stroke and would not recommend closure of PFO at this time. If he has recurrent TIA or stroke would consider closing PFO. Continue with a nticoagulation and stop Plavix going home. Continue with metoprolol. Patient may be discharged home today with a 30 day event monitor. Follow-up in office in 1-2 weeks. Objective - Vital Signs Vital signs: Vital Signs Temp 98.1 F 12/16/21 10:55 Pulse 67 12/16/21 16:00 Resp 16 12/16/21 16:00 BP 176/86 12/16/21 16:00 Pulse Ox 98 12/16/21 16:00 FiO2 Intake & Output 12/15/21 12/16/21 12/16/21 18:59 06:59 18:59 Intake Total 65.417 860 Balance 65.417 860 Intake: Intake, IV Titration 65.417 Amount Diltiazem 125 mg In 65.417 Sodium Chloride 0.9% 100 ml @ 5 MG/HR 5 mls/hr IV .Q24H [facility] Rx#:[id number] Oral 860 Other: Voiding Method Toilet Toilet Toilet # Voids 2 2 2 - Labs CBC & Chem 7: 12/14/21 19:05 12/14/21 19:05
--- NOTE | 2021-12-16 17:35 | P.DS ---
Providers Date of admission: 12/14/21 21:21 Expected date of discharge: 12/16/21 Attending physician: Ellen De Los Santos MD Consults: 12/14/21 21:19 Consult Physician Urgent Consulting Provider: David Diaz Consult Reason/Comments: syncope w transient confusion Do you want consulting provider notified?: Yes Consult Physician Urgent Consulting Provider: Kj Caceres Consult Reason/Comments: new onset a fib, syncope Do you want consulting provider notified?: Yes Primary care physician: Yaritza [facility] Course: 70-year-old male with history of hypertension, hyperlipidemia, TIA 2019, new- onset of atrial fibrillation who presents for syncopal episode. Patient states he was asleep and then his called for him and apparently he attempted to get up out of his chair and then lost consciousness. Does not recall any prodrome of chest pain or lightheadedness or shortness of breath. found patient with contusion on his left forehead as well as had had a bowel movement. Patient was brought to the ER and found to be in A. fib with mild RVR which is a new diagnosis for him. He had fairly quick return wall with him and mole within approximately 5-10 minutes and was only unconscious for 15-20 seconds. He denies any prior history. No family history of sudden cardiac . EKG shows atrial fibrillation with RVR without significant ST-T wave abnormalities. Troponins normal 3. No d-dimer was drawn. Currently states he feels at his baseline. Has never had cardiac workup before. Noted to be mildly hyponatremic. He was briefly placed on Cardizem drip and converted to sinus rhythm. Patient was evaluated by neurology and cardiology; neuro workup was unremarkable; patient had echocardiogram completed which revealed PFO; patient was found to be in new onset atrial fibrillation which converted to normal sinus rhythm; patient was started on metoprolol 12.5 mg daily; Plavix was discontinued and patient was started on anticoagulation with plans to follow-up in outpatient regarding further management of PFO Plan - Discharge Summary Discharge Rx Participant: No New Discharge Prescriptions: New Apixaban [Eliquis] 5 mg PO BID 30 Days #60 tab Metoprolol Succinate (ER) [Toprol XL] 12.5 mg PO DAILY 30 Days #30 tab Continue Levothyroxine Sodium [Synthroid] 88 mcg PO DAILY Multivitamins, Thera [Multivitamin (formulary)] 1 tab PO DAILY Atorvastatin [Lipitor] 40 mg PO DAILY #30 tab Cholecalciferol [Vitamin D3 (25 Mcg = 1000 Iu)] 25 mcg PO DAILY Lisinopril/Hydrochlorothiazide [Zestoretic 10-12.5] 1 tab PO DAILY [place]-3/Dha/Epa/Fish Oil [Fish Oil 1,000 mg Softgel] 1 cap PO DAILY Ascorbic Acid [Vitamin C] 1,000 mg PO DAILY Discontinued Clopidogrel [Plavix] 75 mg PO DAILY #30 tab Discharge Medication List Levothyroxine Sodium [Synthroid] 88 mcg PO DAILY 01/12/16 [History] Multivitamins, Thera [Multivitamin (formulary)] 1 tab PO DAILY 01/12/16 [History] Atorvastatin [Lipitor] 40 mg PO DAILY #30 tab 01/15/16 [Rx] Ascorbic Acid [Vitamin C] 1,000 mg PO DAILY 12/14/21 [History] Cholecalciferol [Vitamin D3 (25 Mcg = 1000 Iu)] 25 mcg PO DAILY 12/14/21 [History] Lisinopril/Hydrochlorothiazide [Zestoretic 10-12.5] 1 tab PO DAILY 12/14/21 [History] [place]-3/Dha/Epa/Fish Oil [Fish Oil 1,000 mg Softgel] 1 cap PO DAILY 12/14/21 [History] Apixaban [Eliquis] 5 mg PO BID 30 Days #60 tab 12/16/21 [Rx] Metoprolol Succinate (ER) [Toprol XL] 12.5 mg PO DAILY 30 Days #30 tab 12/16/21 [Rx] Follow up Appointment(s)/Referral(s): Yaritza Novak DO [Primary Care Provider] - 1-2 days Patient Instructions/Handouts: [facility] (ED) Discharge Disposition: HOME SELF-CARE
--- NOTE | 2022-01-17 06:39 | ECHOS ---
STRESS ECHOCARDIOGRAM INDICATIONS: Syncope. Underlying rhythm is sinus. There were frequent PACs noted. There were short self-limited runs of atrial tachycardia noted. CONCLUSION: This 24-hour Holter reveals sinus rhythm with PACs and self-limited run of paroxysmal atrial tachycardia. GURMEET / TANIYAN: [id number] /
--- NOTE | 2022-01-31 14:52 | CA ---
CARDIOLOGY REPORT INDICATIONS: Syncope. Underlying rhythm is sinus. There were frequent PACs noted. There were short self-limited runs of atrial tachycardia noted. CONCLUSION: This 30 day Event monitor reveals sinus rhythm with PACs and self-limited run of paroxysmal atrial tachycardia. MMODDavid / IJN: [id number] /
== END 2021-12-16 18:43 | disposition home or self-care (01) ==
LOC: EC 18:46 → 3SCARD 21:21 → INTOOBSV 21:21 → 3SCARD 22:08 → UNDODISIN 12-16 18:43
PROVIDERS: ADMIT Internal Medicine; ATTEND Internal Medicine
PROC: 0HQ0XZZ Repair Scalp Skin, External Approach (ICD-10-PCS; 2021-12-14)
PROC: 4A10X4Z Monitoring of Central Nervous Electrical Activity, External Approach (ICD-10-PCS; principal; 2021-12-15)
DX: I48.91 Unspecified atrial fibrillation (principal); R55 Syncope and collapse; E87.1 Hypo-osmolality and hyponatremia; Q21.1 Atrial septal defect; I11.9 Hypertensive heart disease without heart failure; I07.1 Rheumatic tricuspid insufficiency; I47.1 Supraventricular tachycardia; I49.1 Atrial premature depolarization; S01.81XA Laceration without foreign body of other part of head, initial encounter; E03.9 Hypothyroidism, unspecified; E78.5 Hyperlipidemia, unspecified; J45.909 Unspecified asthma, uncomplicated; R32 Unspecified urinary incontinence; Z79.02 Long term (current) use of antithrombotics/antiplatelets; Z79.890 Hormone replacement therapy; Z79.899 Other long term (current) drug therapy; Z86.73 Personal history of transient ischemic attack (TIA), and cerebral infarction without residual deficits; Z86.010 Personal history of colon polyps; Z87.891 Personal history of nicotine dependence; Z98.890 Other specified postprocedural states; Z82.0 Family history of epilepsy and other diseases of the nervous system
CPT/HCPCS: 96361 ×2; 96366 ×2; 12013; 90471; 96365; 99291; 36415; 95819; 93005; 93306; 93270; 85379; 80053; 83735; 84484 ×2; 85025; 85610; 85730; 71046; 72125; 70450; 90715; G0378 ×3; 96374